=== PATIENT | male | born 2000 | race Caucasian/White ===

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

== ENCOUNTER 2020-11-29 17:41 | Emergency (ER) | payer MEDICAID, OTHER ==
[~2020-11-29] VITALS: Ht 170.2 cm; Wt 63.6 kg
[2020-11-29] MEDS ORDERED: NAPROXEN 250 MG TABLET PO ONE (21:00)
[2020-11-29 22:31] VITALS: BP 142/92
== END 2020-11-29 23:00 | disposition home or self-care (01) ==
LOC: EMS 17:42
DX: S93.601A Unspecified sprain of right foot, initial encounter (principal); S93.602A Unspecified sprain of left foot, initial encounter; X58.XXXA Exposure to other specified factors, initial encounter; Y93.89 Activity, other specified; Y92.89 Other specified places as the place of occurrence of the external cause; Y99.8 Other external cause status
CPT/HCPCS: 99283